=== PATIENT | female | born 1955 | race Two or more races ===

== ENCOUNTER 2022-09-17 22:43 | Emergency (ER) | payer MEDICAID, OTHER ==
[~2022-09-17] VITALS: Ht 157.5 cm; Wt 56.9 kg
[2022-09-18] MEDS ORDERED: KETOROLAC TROMETH 30 MG/ML 1ML VIAL IM ONE (02:00)
[2022-09-18 02:01] VITALS: BP 159/78
== END 2022-09-18 02:13 | disposition home or self-care (01) ==
LOC: ER 22:43
DX: S16.1XXA Strain of muscle, fascia and tendon at neck level, initial encounter (principal); E11.9 Type 2 diabetes mellitus without complications; X58.XXXA Exposure to other specified factors, initial encounter; Y93.89 Activity, other specified; Y92.89 Other specified places as the place of occurrence of the external cause; Y99.8 Other external cause status
CPT/HCPCS: 96372; 99283; J1885